=== PATIENT | female | born 1980 | race Caucasian/White ===

== ENCOUNTER 2017-12-05 18:28 | Emergency (ER) | payer BC ==
[~2017-12-05] VITALS: Ht 165.1 cm; Wt 79.4 kg
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
[2017-12-05 21:38] VITALS: BP 127/80
== END 2017-12-05 21:40 | disposition home or self-care (01) ==
LOC: ER 18:28
DX: H53.122 Transient visual loss, left eye (principal)
CPT/HCPCS: 70450; 99283